=== PATIENT | female | born 1970 | race African-American/Black ===

== ENCOUNTER → 2017-03-26 | Outpatient (CLI) | payer OTHER ==
[~2017-03-26] MED LIST: DORZ2SOL15 LEFT EYE; IBUP1TAB7 PO; LEVO.1 PO; PROP10TA6 PO; SIME1CAP17 PO; TYLETAB34 PO; [UNRECOGNIZED DRUG - CODE] T-DERMAL
== END ==
LOC: CPRE 11:28
PROVIDERS: ATTEND Obstetrics & Gynecology
DX: N94.4 Primary dysmenorrhea (principal)

== ENCOUNTER 2017-04-04 05:21 | Observation (INO) | payer OTHER ==
[~2017-04-04] VITALS: Ht 157.5 cm; Wt 70.8 kg
[~2017-04-04 05:21] MED LIST changes: -SIME1CAP17 PO; -TYLETAB34 PO; -[UNRECOGNIZED DRUG - CODE] T-DERMAL
[2017-04-04] MEDS ORDERED: SODIUM CHLORID 0.9% 500 ML IV PRN (05:45)
[2017-04-04] MEDS ORDERED: LACTATED RINGER'S 1000 ML IV PRN (05:45)
[2017-04-04] MEDS ORDERED: POVIDONE IODINE 5% (ANTISEPSIS KIT) 4 APPLICATIONS EACH NARE PRN (05:45)
[2017-04-04] MEDS ORDERED: METOPROLOL TARTRATE 25 MG TAB PO PRN (05:45)
[2017-04-04] MEDS ORDERED: CHLORHEXIDINE GLUCONATE 2 % 1 PACK (2 CLOTHS) TOPICAL PRN (05:45)
[2017-04-04] MEDS ORDERED: ceFAZolin 2 GM PREMIX 50 ML ONE (07:08)
[2017-04-04] MEDS: ceFAZolin 2 GM PREMIX 50 ML IV SCH ×2 (07:10→07:30)
[2017-04-04] MEDS ORDERED: ACETAMINOPHEN 500 MG CPLT PO SCH ×2 (07:15)
[2017-04-04] MEDS ORDERED: GABAPENTIN 300 MG CAP PO SCH (07:15)
[2017-04-04] MEDS ORDERED: ACETAMINOPHEN 1000 MG/100 ML 100 ML IV ONE (07:24)
[2017-04-04] MEDS ORDERED: BUPIVACAINE/EPINEPHRINE 0.5% PF 30 ML VIAL ONE (07:35)
[2017-04-04] MEDS ORDERED: VASOPRESSIN 20 UNITS/ML VIAL ONE (07:35)
--- NOTE | 2017-04-04 10:14 | HHI.DS ---
Discharge Summary Admission Date 04/04/2017 Discharge Date: Apr 05, 2017 Admitting Diagnosis Heavy menstrual bleeding Procedures Laparoscopic-assisted vaginal hysterectomy and bilateral salpingo-oophorectomy Brief History Patient is a 46-year-old -[place] female who is seen in the outpatient setting for heavy menstrual bleeding despite endometrial ablation, she is consented for the above procedure and underwent a laparoscopic-assisted vaginal hysterectomy bilateral salpingo-nephrectomy, she progressed well and met milestones on postoperative #1 and was prepared for discharge home. She was counseled on postoperative precautions, recommendations and follow-up. Patient was started on transdermal estrogen replacement at time of hospitalization to continue at discharge Pt Condition on Discharge: Good Discharge Disposition: Discharge Home Discharge Instructions DIET: Follow Instructions for: As Tolerated, No Restrictions Activities you can perform: Regular-No Restrictions Activities to avoid: Driving for 24 hrs, Lifting/Bending, Sexual Activity Additional Activity Instructio: No sexual activity, no lifting anything over 10 pounds, Follow up Referrals: BEHAVIORAL HEALTH WORKER - 2 Weeks @ [facility] with Jay Galindo MD, Zachary Sloan MD Apr 04, 2017 10:14
[2017-04-04] MEDS ORDERED: ONDANSETRON HCL 4 MG/2 ML VIAL IVP PRN (10:15)
[2017-04-04] MEDS ORDERED: SODIUM CHLORIDE 0.9% FLUSH 10 ML FLUSH IV FLUSH PRN (10:15)
[2017-04-04] MEDS ORDERED: diphenhydrAMINE HCL 25 MG CAP PO PRN (10:15)
[2017-04-04] MEDS ORDERED: oxyCODONE/ACETAMINOPHEN 5 MG/325 MG TAB PO PRN ×2 (10:15)
[2017-04-04] MEDS ORDERED: ONDANSETRON ODT 4 MG TAB PO PRN (10:15)
[2017-04-04] MEDS ORDERED: DO NOT ADM ANY ANTICOAGULANT DRUGS PRN (10:16)
--- NOTE | 2017-04-04 10:20 | HHI.PR ---
Immediate Post Op Note Procedure Date: Apr 04, 2017 Pre Op Diagnosis: (1) Heavy menstrual bleeding Post Op Diagnosis: (1) Heavy menstrual bleeding Surgeon: Jay Galindo Broiler Supervisor(s): Dr. Veronika Lawler was scrubbed throughout the case Procedure: Laparoscopic-assisted vaginal hysterectomy and bilateral salpingo-oophorectomy Findings: Normal external female genitalia vagina and cervix, globular retroverted uterus , normal pelvic anatomy without adhesions, normal bilateral fallopian tubes and ovaries. Additional Information: Anesthesia: General endotracheal Specimen: Uterus and cervix sent separately then bilateral ovaries and fallopian tubes, pathology routine Estimated blood loss: 400 cc Fluid replacement: 1500 cc lactated Ringer's Urine output: 350 cc clear DVT prophylaxis: Sequential compression devices throughout the case Antibiotics: 2 g Ancef preoperatively Counts: correct x2 Time out done: yes Disposition: Stable to PACU Complications: None Date/Time of Procedure: SEE SURGICAL CARE RECORD Jay Galindo MD Apr 04, 2017 10:20
[2017-04-04] MEDS: LACTATED RINGER'S 1000 ML INJ 1,000 ML IV SCH ×2 (10:30→14:52)
[2017-04-04] MEDS ORDERED: HYDROmorphone HCL PF 2 MG/ML VIAL IV PUSH PRN (10:30)
[2017-04-04] MEDS: KETOROLAC TROMETHAMINE 30 MG/ML (IVP) VIAL IVP SCH ×3 (11:00→23:16)
[2017-04-04 11:46] VITALS: BP 173/98; PULSE 80; RESP 16; TEMP 97.6; O2SAT 98
[2017-04-04 12:00] VITALS: BP 136/79; PULSE 66; RESP 16; TEMP 98.1; O2SAT 98
[2017-04-04] MEDS ORDERED: NEOSTIGMINE 5 MG/5 ML SYRINGE IV PUSH ONE (12:00)
[2017-04-04] MEDS ORDERED: hydrALAZINE HCL 20 MG/ML VIAL IV PUSH PRN (12:00)
[2017-04-04] MEDS ORDERED: DEXAMETHASONE SOD PHOS 4 MG/ML VIAL IV ONE (12:00)
[2017-04-04] MEDS ORDERED: GLYCOPYRROLATE 1 MG/5 ML SYRINGE IV PUSH ONE (12:00)
[2017-04-04] MEDS ORDERED: PROPOFOL 200 MG/20 ML AMP IV ONE (12:00)
[2017-04-04] MEDS ORDERED: LACTATED RINGER'S 1000 ML INJ 1,000 ML IV ONE (12:00)
[2017-04-04] MEDS ORDERED: ONDANSETRON HCL 4 MG/2 ML VIAL IV ONE (12:00)
[2017-04-04] MEDS ORDERED: ESTRADIOL 0.075 MG/24 HR PATCH T-DERMAL SCH (12:00)
[2017-04-04] MEDS ORDERED: ROCURONIUM INJ 50 MG/5 ML SYRINGE IV PUSH ONE (12:00)
[2017-04-04] MEDS ORDERED: PHENYLEPH/NS 1000 MCG/10 ML SYR IV ONE (12:00)
[2017-04-04] MEDS ORDERED: LIDOCAINE HCL 1% PF 5 ML SYRINGE OTHER ONE (12:00)
[2017-04-04] MEDS: GABAPENTIN 100 MG CAP PO SCH ×3 (13:00→18:00)
[2017-04-04 16:00] VITALS: BP 150/88; PULSE 70; RESP 18; TEMP 98.1; O2SAT 98
[2017-04-04] MEDS: DOCUSATE SODIUM 100 MG CAP PO SCH ×2 (16:23→23:16)
[2017-04-04] MEDS ORDERED: [UNRECOGNIZED DRUG - CODE] T-DERMAL (17:58)
[2017-04-04] MEDS ORDERED: TYLETAB34 PO (17:58)
[2017-04-04] MEDS ORDERED: ACETAMINOPHEN/CODEINE 300 MG/30 MG TAB PO PRN (18:00)
--- NOTE | 2017-04-04 18:01 | HHI.PR ---
Subjective Remarks Doing well, pain is well controlled, eating well. family in room, ambulating, voiding, no nausea. Objective Vital Signs Vital Signs Date Time Temp Pulse Resp B/P (MAP) Pulse Ox O2 Delivery O2 Flow Rate FiO2 04/04/17 16:00 98.1 70 18 150/88 (108) 98 04/04/17 12:00 98.1 66 16 136/79 (98) 98 04/04/17 11:46 97.6 80 16 173/98 (123) 98 04/04/17 10:45 62 12 170/84 (112) 100 Nasal Cannula 2 04/04/17 10:30 55 12 107/57 (74) 100 Simple Mask 04/04/17 10:15 97.5 76 12 166/82 (110) 98 Nasal Cannula 3 04/04/17 08:07 55 121/57 I/O 04/03/17 04/03/17 04/03/17 04/04/17 04/04/17 04/04/17 07:00 15:00 23:00 07:00 15:00 23:00 Intake Total 1500 ml Output Total 750 ml Balance 750 ml Intake IV Total 1500 ml Output Urine Total 350 ml Estimated Blood Loss 400 ml Objective Remarks Chest is clear, regular rate and rhythm. Abdomen is soft and non-distended. Incision is clean and dry. Ext no CCE. A/P Assessment and Plan 46 yo AAF s/p LAVH / BSO for HMB 1. POD #0: AF, VSS, continue routine post op care, AM CBC. Anticipate d/c home tomorrow, discussed post op expectations, precautions, and follow up. - surgical menopause: continue E2 patch, d/c with this, discussed risks / benefits. - change perc to tylenol #3 b/c pt has nausea with perc. 2. HTN / hypothy: continue home meds. Jay Galindo MD Apr 04, 2017 18:01
[2017-04-04] MEDS: ACETAMINOPHEN/CODEINE 300 MG/30 MG TAB PO PRN (19:48)
[2017-04-04 19:52] VITALS: BP 148/83; PULSE 80; RESP 18; TEMP 98.2; O2SAT 100
[2017-04-04] MEDS: SODIUM CHLORIDE 0.9% FLUSH 10 ML FLUSH IV FLUSH SCH (23:16)
[2017-04-05] VITALS: BP 138/64; PULSE 70; RESP 18; TEMP 98.2; O2SAT 95
[2017-04-05 04:00] VITALS: BP 131/72; PULSE 74; RESP 18; TEMP 98; O2SAT 96
[2017-04-05 05:56] LABS: AUTOMATED NEUTROPHIL # 12.1 TH/MM3 (1.8-7.7); BASOPHIL % 0.2 % (0.0-2.0); HEMOGLOBIN 10.2 GM/DL (11.6-15.3); LYMPH % 11.6 % (9.0-44.0); LYMPHOCYTE # 1.7 TH/MM3 (1.0-4.8); MEAN CELL VOLUME 91.7 FL (80.0-100.0); MEAN CORPUSCULAR HEMOGLOBIN 32.3 PG (27.0-34.0); MEAN CORPUSCULAR HGB CONC 35.3 % (32.0-36.0); MEAN PLATELET VOLUME 8.4 FL (7.0-11.0); MONO % 6.4 % (0.0-8.0); MONOCYTE # 0.9 TH/MM3 (0-0.9); NEUT % 81.8 % (16.0-70.0); PLATELET COUNT 319 TH/MM3 (150-450); RED BLOOD COUNT 3.17 MIL/MM3 (4.00-5.30); RED CELL DISTRIBUTION WIDTH 13.1 % (11.6-17.2); WHITE BLOOD COUNT 14.8 TH/MM3 (4.0-11.0)
[2017-04-05] MEDS ORDERED: LEVOTHYROXINE SODIUM 100 MCG TAB PO SCH (06:00)
[2017-04-05] MEDS: KETOROLAC TROMETHAMINE 30 MG/ML (IVP) VIAL IVP SCH (06:00)
[2017-04-05] MEDS ORDERED: SIME1CAP17 PO (07:23)
--- NOTE | 2017-04-05 07:24 | HHI.PR ---
Subjective Remarks Doing well, pain is well controlled, eating well, feeling some gas pain, but passing flatus Objective Vital Signs Vital Signs Date Time Temp Pulse Resp B/P (MAP) Pulse Ox O2 Delivery O2 Flow Rate FiO2 04/05/17 04:00 98.0 74 18 131/72 (91) 96 04/05/17 00:00 98.2 70 18 138/64 (88) 95 04/04/17 19:52 98.2 80 18 148/83 (104) 100 04/04/17 16:00 98.1 70 18 150/88 (108) 98 04/04/17 12:00 98.1 66 16 136/79 (98) 98 04/04/17 11:46 97.6 80 16 173/98 (123) 98 04/04/17 10:45 62 12 170/84 (112) 100 Nasal Cannula 2 04/04/17 10:30 55 12 107/57 (74) 100 Simple Mask 04/04/17 10:15 97.5 76 12 166/82 (110) 98 Nasal Cannula 3 04/04/17 08:07 55 121/57 I/O 04/04/17 04/04/17 04/04/17 04/05/17 04/05/17 04/05/17 07:00 15:00 23:00 07:00 15:00 23:00 Intake Total 1500 ml Output Total 1150 ml 600 ml Balance 350 ml -600 ml Intake IV Total 1500 ml Output Urine Total 750 ml 600 ml Estimated Blood Loss 400 ml # Voids 1 Result Diagram: 04/05/17 0445 Objective Remarks Chest is clear, regular rate and rhythm. Abdomen is soft and non-distended. Incision is clean and dry. Ext no CCE. A/P Assessment and Plan 46 yo AAF s/p LAVH / BSO for HMB 1. POD #1: AF, VSS, continue routine post op care, AM CBC appropriate D/c home today. discussed post op expectations, precautions, and follow up. - surgical menopause: continue E2 patch, d/c with this, discussed risks / benefits. - gas pain: simethicone prn and Rx given. 2. HTN / hypothy: continue home meds. Jay Galindo MD Apr 05, 2017 07:24
[2017-04-05] MEDS ORDERED: SIMETHICONE 80 MG CHEWABLE TAB CHEW ONE (07:30)
[2017-04-05] MEDS: SODIUM CHLORIDE 0.9% FLUSH 10 ML FLUSH IV FLUSH SCH (07:57)
[2017-04-05] MEDS: ACETAMINOPHEN/CODEINE 300 MG/30 MG TAB PO PRN (07:58)
[2017-04-05] MEDS: GABAPENTIN 100 MG CAP PO SCH (07:58)
[2017-04-05] MEDS: DOCUSATE SODIUM 100 MG CAP PO SCH (07:58)
[2017-04-05 08:05] VITALS: BP 150/83; PULSE 67; RESP 16; TEMP 97.3
[2017-04-05] MEDS ORDERED: PROPRANOLOL HCL 10 MG TAB PO SCH (09:00)
--- NOTE | 2017-04-06 20:59 | MP ---
cc: ALLYN COLE MD DATE OF 70 DATE OF SURGERY 04/04/17 PREOPERATIVE DIAGNOSIS Heavy menstrual bleeding POSTOPERATIVE DIAGNOSIS Heavy menstrual bleeding status post hysterectomy and bilateral salpingo-oophorectomy PROCEDURE Laparoscopic assisted vaginal hysterectomy and bilateral salpingo-oophorectomy. SURGEON Allyn Cole MD COMPUTER REPAIR TECHNICIAN Temitope Lawler MD was presented and scrubbed throughout the case. FINDINGS 1. Normal external female genitalia, vagina and cervix. 2. Globular retroverted uterus. 3. Normal pelvic anatomy without adhesions, bilateral normal appearing ovaries and fallopian tubes and uterus. ANESTHESIA General endotracheal SPECIMENS Uterus and cervix and separately bilateral ovaries and fallopian tubes to pathology routine. ESTIMATED BLOOD LOSS 400 mL FLUID REPLACEMENT 1500 mL lactated ringers URINE OUTPUT 350 mL clear via Garcia DEEP VENOUS THROMBOSIS PROPHYLAXIS Sequential compression devices throughout the case. ANTIBIOTICS 2 grams Ancef pre op. ADDITIONAL MEDICATIONS 600 mg gabapentin and 1 gram Tylenol preoperatively and 25 mL 0.25% Marcaine with epinephrine for local anesthesia. COUNTS Correct times two Timeout done and correct COMPLICATIONS None. DISPOSITION Stable to post anesthesia care unit INDICATIONS This is a 46 year old female who had heavy menstrual bleeding despite an ablation and was consented for the above procedure. Please see H&P report for further details and consent. The patient states she had a family history of ovarian cancer and is very concerned even though she had normal ultrasound and mildly but for her age normal CA 125 of 41. She was counseled on the risks and benefits of bilateral oophorectomy as well. PROCEDURE IN DETAIL The patient was taken to the operating room and placed under general anesthesia and positioned in lithotomy and yellow fin stirrups. The abdomen and vagina were prepped and draped in a sterile fashion. A Garcia was inserted. A HUMI uterine manipulator was attempted to be inserted. Once we had obtained intraabdominal access, was found to have a perforated body of the uterus and a Hulka uterine manipulator was then placed. Attention was turned to the abdomen. Local anesthesia was applied to all port sites. A 5 mm umbilicus incision was made and, with optical view technique, a 5mm trocar was inserted. The abdomen was insufflated with CO2 gas and survey performed. A single right lower quadrant and two left lower quadrant 5 mm incisions and trocars were inserted with intraabdominal visualization. Using an Enseal vessel sealer, the round ligaments were grasped, dessicated and transected on either side and the broad ligament opened and the anterior bladder flap developed. The IP ligaments were skeletonized above the pelvic brim and isolated away from the ureter and grasped, dessicated and transected with the Enseal bilaterally. I then dissected the broad ligaments, the ovaries were skeletonized and a portion of the cardinal ligament was transected. The uterines were not addressed intraabdominally. Attention was turned to the vagina. Dilute vasopressin of 20 units and 50 mL of saline was injected circumferentially around the cervico vaginal junction, then using a scalpel this plane was incised circumferentially and sharp dissection was used to enter posteriorly into the cul-de-sac. The Danelle clamp was used to clamp and transect and transfix the uterosacrals bilaterally with 0 Vicryl. The anterior cul de sac was entered sharply, the uterine arteries were clamped cut and tied with 0 vicryl. Then using serial clamps, cut and tie technique moved up the the broad ligament on either side, the uterus was isolated and removed from the field as well as the ovaries. The cuff was closed incorporating the uterosacrals bilaterally for support with 0 locking Vicryl and also incorporating the peritoneum from let to right. Attention was turned back to the abdomen. It was insufflated and the pelvis was irrigated and surgical sites were found to be hemostatic. The abdomen was desufflated. Trocar were removed. The skin was closed with 4-0 Monocryl and skin glue overlying the Garcia was removed and the patient was transferred to post anesthesia care unit in stable condition. MD BRITTANY [place]/ /10:21 AM /8:30 PM CARLITA
[2017-04-11] MEDS ORDERED: REMOVE OLD CLIMARA (ESTRADIOL) PATCH T-DERMAL SCH (12:00)
== END 2017-04-05 10:39 | disposition home or self-care (01) ==
LOC: HSDC 05:21 → HSDI 10:09 → H1EA 11:23
PROVIDERS: ADMIT Obstetrics & Gynecology; ATTEND Obstetrics & Gynecology
DX: N93.9 Abnormal uterine and vaginal bleeding, unspecified (principal); N85.4 Malposition of uterus; N73.6 Female pelvic peritoneal adhesions (postinfective); D25.9 Leiomyoma of uterus, unspecified; R14.3 Flatulence; I10 Essential (primary) hypertension
CPT/HCPCS: 00840; 58552; 85025; 86850; 86900; 86901; 88307; 96374; 96375; 96376; G0378; J0131; J0360; J0690; J1100; J1170; J1885; J2370; J2405; J2710; J3010; J7120